=== PATIENT | male | born 1935 | race Caucasian/White ===

== ENCOUNTER 2016-11-10 13:13 | Inpatient (IN) | payer OTHER ==
--- NOTE | 2016-11-10 14:03 | EDPHY ---
H & P Stated Complaint: Passed out 2 days ago while taking a shower;lac to forehead Time Seen by Provider: 11/10/16 13:43 HPI/ROS: CHIEF COMPLAINT: Syncope, head injury HISTORY OF PRESENT ILLNESS: Patient says he was standing in the bathroom 2 days ago when he lost consciousness. He did not recently stood up. He does not recall exactly what happened. He feels that he was on the ground for just a moment. He says that he struck his head on the sink or toilet when he fell. He woke with a laceration of the forehead that was mild. Had a mild headache at that time. Since then he has been slightly lightheaded and dizzy. He has no headache at this time. No chest pain preceding this or since. No abdominal pain. No back pain. Incontinence of bowel or bladder. No motor or sensory changes distally. No history of this. No history of venous thrombolic event. No recent travel or surgery. Does not take any blood thinners. No other associated complaints or modifying factors. He said he is only here because his family wanted him to come. REVIEW OF SYSTEMS: Ten systems reviewed and are negative unless otherwise noted in the HPI PERTINENT MEDICAL HISTORY: Denies EXAMINATION General Appearance: Alert, no distress Head: normocephalic. There is superficial laceration on the forehead over the brow. No Vasquez sign. No raccoon eyes. No hematoma, crepitus or deformities. Eyes: Pupils equal and round, no conjunctival pallor or injection ENT, Mouth: Mucous membranes moist. Uvula midline. Neck: Normal inspection, supple, non-tender. No crepitus, step-off or deformity. Respiratory: Lungs are clear to auscultation. No wheezing, rhonchi or crackles. Cardiovascular: Regular rate and rhythm. No murmur. Pulses intact distally. Gastrointestinal: Abdomen is soft and nontender Back: non-tender, no bony abnormalities Neurological: GCS 15. A&O, nonfocal, strength symmetric in all 4 limbs. No pronator drift. No dysmetria. Skin: Warm and dry, no rash. 1.5 cm superficial laceration of the forehead over the brow Extremities: Nontender, no pedal edema Psychiatric: Mood and affect normal DIFFERENTIAL DIAGNOSES: Including but not limited to syncope, dehydration, anemia, PE, ACS, vasovagal syndrome MDM: 2:02 p.m. Syncope 2 days ago with subsequent closed head injury and superficial forehead laceration. Upon my examination his oxygenation is 88% with clear sounds in all lung sebastian. No chest pain. No neuro deficits. Cardiac labs, CT scan of the head, CT scan of the chest have been ordered. He is resting comfortably in no acute distress. Oxygen is normal on 2 L nasal cannula. 3:08 p.m. Laboratory studies are all within normal limits including a negative troponin. Notified by radiologist Dr. Candelario at this time that the CT scan of the head is unremarkable for any acute findings. CT scan of the chest is pending. He remains hemodynamically stable in no acute distress 3:[address] Workman CT scan of the chest reveals no PE. There is mild bronchitis. No other acute findings. I have re-evaluated the patient, and he remains awake and alert in no acute distress. No subsequent syncope here. No chest pain. Plan for admission for syncope and further workup. Forehead wound has been irrigated. We will dress this with Steri-Strips for routine wound care with delayed closure given that the wound has been open for over 48 hours. 3:45 p.m. Case discussed with hospitalist Dr. Gunn. He will admit the patient. He is admitted in stable condition. SUPERVISION: Patient was evaluated in conjunction with the supervising physician. Please see their note for details. Source: Patient Exam Limitations: No limitations - Personal History Current Tetanus Diphtheria and Acellular Pertussis (TDAP): Yes - Medical/Surgical History Hx Asthma: No Hx Chronic Respiratory Disease: No Hx Diabetes: No Hx Cardiac Disease: No Hx Renal Disease: No Hx Cirrhosis: No Hx Alcoholism: No Hx HIV/AIDS: No Hx Splenectomy or Spleen Trauma: No Other PMH: neg per hx - Social History Smoking Status: Never smoked Constitutional: Initial Vital Signs Temperature (C) 97.3 F 11/10/16 13:15 Heart Rate 57 L 11/10/16 13:15 Respiratory Rate 60 H 11/10/16 13:15 Blood Pressure 148/86 H 11/10/16 13:15 O2 Sat (%) 93 11/10/16 13:15 O2 Delivery Mode Room Air Allergies/Adverse Reactions: Sulfa (Sulfonamide Antibiotics) Allergy (Intermediate, Verified 11/10/16 13:28) huge purple welts Home Medications: Medication Instructions Recorded Esomeprazole Magnesium [Nexium] 20 mg PO 02/06/16 Medical Decision Making - Diagnostics Imaging Results: Imaging Impressions Chest X-Ray 11/10/16 13:53 Impression: Nothing acute radiographically. Head CT 11/10/16 14:00 Impression: 1. Mild to moderate age-related atrophy. 2. No hemorrhage, mass effect, or definite acute peripheral infarct. 3. Mild microvascular ischemic disease. 4. Nondisplaced fracture anterior right nasal bone. Findings discussed with Lul Barroso PAC at 15:07 hour, 11/10/2016. Chest/Thorax CTA 11/10/16 14:01 Impression: 1. No evidence for pulmonary embolus. Evidence of underlying pulmonary artery hypertension. 2. Mild bronchitis. Mild dependent atelectasis in both lower lobes. 3. Evidence of atherosclerotic disease in the coronary arteries. 4. Large hiatal hernia. 5. Other chronic findings, as above. Results called and discussed with Lul Barroso, PAC, on 11/10/2016 at 1517 hours. - Data Points Laboratory Results: Laboratory Results 11/10/16 13:59 11/10/16 13:59 11/10/16 11/10/16 11/10/16 13:59 13:59 13:59 WBC 5.40 10^3/uL 10^3/uL (3.80-9.50) RBC 5.13 10^6/uL 10^6/uL (4.40-6.38) Hgb 14.4 g/dL g/dL (13.7-17.5) Hct 44.1 % % (40.0-51.0) MCV 86.0 fL fL (81.5-99.8) MCH 28.1 pg pg (27.9-34.1) MCHC 32.7 g/dL g/dL (32.4-36.7) RDW 15.6 % H % (11.5-15.2) Plt Count 218 10^3/uL 10^3/uL (150-400) MPV 9.4 fL fL (8.7-11.7) Neut % (Auto) 53.7 % % (39.3-74.2) Lymph % (Auto) 35.0 % % (15.0-45.0) Yates % (Auto) 8.3 % % (4.5-13.0) Eos % (Auto) 1.9 % % (0.6-7.6) Baso % (Auto) 0.9 % % (0.3-1.7) Nucleat RBC Rel Count 0.0 % % (0.0-0.2) Absolute Neuts (auto) 2.90 10^3/uL 10^3/uL (1.70-6.50) Absolute Lymphs (auto) 1.89 10^3/uL 10^3/uL (1.00-3.00) Absolute Monos (auto) 0.45 10^3/uL 10^3/uL (0.30-0.80) Absolute Eos (auto) 0.10 10^3/uL 10^3/uL (0.03-0.40) Absolute Basos (auto) 0.05 10^3/uL 10^3/uL (0.02-0.10) Absolute Nucleated RBC 0.00 10^3/uL 10^3/uL (0-0.01) Immature Gran % 0.2 % % (0.0-1.1) Immature Gran # 0.01 10^3/uL 10^3/uL (0.00-0.10) PT 14.2 SEC SEC (12.0-15.0) INR 1.11 (0.83-1.16) APTT 27.1 SEC SEC (23.0-38.0) Sodium 138 mEq/L mEq/L (134-144) Potassium 4.1 mEq/L mEq/L (3.5-5.2) Chloride 106 mEq/L mEq/L (97-110) Carbon Dioxide 25 mEq/l mEq/l (22-31) Anion Gap 7 mEq/L L mEq/L (8-16) BUN 14 mg/dL mg/dL (7-23) Creatinine 0.9 mg/dL mg/dL (0.7-1.3) Estimated GFR > 60 Glucose 123 mg/dL H mg/dL (70-100) Calcium 9.5 mg/dL mg/dL (8.5-10.4) Troponin I < 0.012 ng/mL ng/mL (0-0.034) NT-Pro-B Natriuret Pep 76 pg/mL pg/mL (0-450) Lipase 53.0 IU/L IU/L (23-300) Departure - Departure Disposition: [facility] Inpatient Acute Clinical Impression: Syncope Qualifiers: Syncope type: unspecified Qualified Code(s): R55 - Syncope and collapse Condition: Good Referrals: RONNY SARAH [Other] - As per Instructions
[2016-11-10 14:04] LABS: % IMMATURE GRANULYOCYTES 0.2 % (0.0-1.1); ABSOLUTE IMMATURE GRANULOCYTES 0.01 10^3/uL (0.00-0.10); ADD DIFF? NO; ADD MORPH? NO; ADD SCAN? NO; ATYPICAL LYMPHOCYTE FLAG 20 (0-99); FRAGMENT RBC FLAG 0 (0-99); HEMATOCRIT 44.1 % (40.0-51.0); HEMOGLOBIN 14.4 g/dL (13.7-17.5); LEFT SHIFT FLG 0 (0-99); LIPEMIA HEMOLYSIS FLAG 80 (0-99); MEAN CELL HEMOGLOBIN 28.1 pg (27.9-34.1); MEAN CELL HEMOGLOBIN CONCENTR. 32.7 g/dL (32.4-36.7); MEAN PLATELET VOLUME 9.4 fL (8.7-11.7); PLATELET CLUMPS FLAG 0 (0-99); PLATELET COUNT 218 10^3/uL (150-400); RED BLOOD CELL COUNT 5.13 10^6/uL (4.40-6.38); RED CELL DISTRIBUTION WIDTH 15.6 % (11.5-15.2)
--- NOTE | 2016-11-10 14:09 | CPEKG ---
Heart Rate: 141 RR Interval: 426 QRSD Interval: 100 QT Interval: 380 QTC Interval: 582 QRS [place]: 4 T Wave [place]: 27 EKG Severity - ABNORMAL ECG - EKG Impression: ATRIAL FLUTTER, A-RATE 227 EKG Impression: MULTIFORM VENTRICULAR PREMATURE COMPLEXES EKG Impression: BORDERLINE PROLONGED QT INTERVAL Electronically Signed By: Reid Mcclendon 10-Nov-2016 20:26:03
[2016-11-10 14:14] LABS: INR 1.11 (0.83-1.16); PROTIME(PATIENT) 14.2 SEC (12.0-15.0)
[2016-11-10 14:15] LABS: APTT 27.1 SEC (23.0-38.0)
[2016-11-10 14:23] LABS: ANION GAP 7 mEq/L (8-16); CALCIUM 9.5 mg/dL (8.5-10.4); CARBON DIOXIDE 25 mEq/l (22-31); CHLORIDE 106 mEq/L (97-110); CREATININE 0.9 mg/dL (0.7-1.3); GLOMERULAR FILTRATION RATE > 60; GLUCOSE 123 mg/dL (70-100); POTASSIUM 4.1 mEq/L (3.5-5.2); SODIUM 138 mEq/L (134-144)
[2016-11-10 14:34] LABS: TROPONIN I < 0.012 ng/mL (0-0.034)
[2016-11-10] MEDS ORDERED: IOPAMIDOL (ISOVUE 370) 100 ML BTL IV ONE (14:36)
[2016-11-10] MEDS ORDERED: ONDANSETRON DISINTEGRATING 4 MG TAB PO PRN (16:38)
[2016-11-10] MEDS ORDERED: ACETAMINOPHEN 325 MG TAB PO PRN (16:38)
[2016-11-10] MEDS ORDERED: ONDANSETRON 4 MG/2 ML VIAL IVP PRN (16:38)
[2016-11-10] MEDS ORDERED: TEMAZEPAM 15 MG CAP PO PRN (16:43)
--- NOTE | 2016-11-10 17:22 | GHP ---
[f rep st] HISTORY AND PHYSICAL DATE OF ADMISSION: 11/10/2016 CHIEF COMPLAINT: Syncope. HISTORY OF PRESENT ILLNESS: This is an 81-year-old man who lives independently with no medical prob lems, who presents with syncope. Described as sudden, with no prodrome. No preceding chest pain, p alpitations, or shortness of breath. He fell and hit his head on the way down on the counter in the bathroom. This was unwitnessed. He did not bite his tongue or lose control of his bowel or his bl adder. He has never had an episode of syncope like this. He presents today because his family was very concerned about the cuts on his forehead and requested that he present for medical attention. He is normally very active and exercises frequently. He does not get any chest pain. He notes that he normally has a very low pulse around 40s "when he is training." PAST MEDICAL/PAST SURGICAL HISTORY: GERD. MEDICATIONS: Please see medication reconciliation. ALLERGIES: Sulfa. FAMILY HISTORY: His father had an arrhythmia. SOCIAL HISTORY: Lives independently with his . He occasionally drinks alcohol. He does not sm alexy cigarettes. REVIEW OF SYSTEMS: A 10-point review of systems is conducted and is negative except per the HPI. PHYSICAL EXAMINATION: VITAL SIGNS: Blood pressure 148/86, heart rate 57, respiration rate is 20, s aturating 93% on room air, temperature is 36.3. GENERAL: The patient is a very pleasant man who ap pears comfortable, alert, oriented, and in no acute distress. HEENT: Shows him to have multiple mi ld lacerations on his forehead. One of them has gauze over it. CARDIOVASCULAR: Exam shows him to be borderline bradycardic. There are no murmurs, rubs, or gallops. PULMONARY: Exam shows the lung s clear to auscultation bilaterally. ABDOMEN: Exam is soft, nontender, and nondistended. SKIN: E xam shows no rash. : Exam shows no Fritz. NEUROLOGIC: Exam shows him to be alert and oriented x3. He is moving all extremities. PSYCHIATRIC: Exam shows a normal mood and affect. LABORATORY DATA: CBC is normal. INR is 1.1. Basic metabolic panel is normal. Troponin is negativ e. BNP is 76. Lipase is negative. DATA: 1. I discussed this with Lul Barroso. We will admit for further workup. 2. CT angiogram of his chest and thorax is negative for PE. It shows mild bronchitis. He does hav e coronary artery disease seen on CT scan. He has a large hiatal hernia. 3. Head CT shows nothing acute. 4. ECG, which I personally viewed and interpreted, shows 3 different PVCs. They are the same morph ology. Otherwise, he is in a sinus rhythm. He has a poor baseline. He also had a PAC. IMPRESSION AND PLAN: An 81-year-old man with no medical history, who presents with syncope. 1. Syncope: Concerning for cardiac in origin. He does have multiple PVCs on his EKG, and he is townsend ving some PVCs on tele. We will admit, monitor on telemetry. I have ordered an echocardiogram as w ell as a treadmill EKG test for tomorrow. I have also trend troponins. If this is all negative, he will need at the very least a Holter monitor. He does have coronary artery disease seen on his CT scan. 2. Gastroesophageal reflux disease: Continue his Prilosec. 3. Code status: He would like to be [id number]. /[id number]/MODL
[2016-11-10 18:19] LABS: TROPONIN I 0.018 ng/mL (0-0.034)
[2016-11-11 01:15] LABS: COLOR YELLOW; LEUKOCYTE ESTERASE,URINE NEGATIVE (NEGATIVE); NITRITE,URINE NEGATIVE (NEGATIVE)
[2016-11-11 05:16] LABS: % IMMATURE GRANULYOCYTES 0.2 % (0.0-1.1); ABSOLUTE IMMATURE GRANULOCYTES 0.01 10^3/uL (0.00-0.10); ADD DIFF? NO; ADD MORPH? NO; ADD SCAN? NO; ATYPICAL LYMPHOCYTE FLAG 0 (0-99); FRAGMENT RBC FLAG 0 (0-99); HEMATOCRIT 40.6 % (40.0-51.0); HEMOGLOBIN 13.6 g/dL (13.7-17.5); LEFT SHIFT FLG 0 (0-99); LIPEMIA HEMOLYSIS FLAG 80 (0-99); MEAN CELL HEMOGLOBIN 28.5 pg (27.9-34.1); MEAN CELL HEMOGLOBIN CONCENTR. 33.5 g/dL (32.4-36.7); MEAN CELL VOLUME 84.9 fL (81.5-99.8); PLATELET CLUMPS FLAG 0 (0-99); PLATELET COUNT 199 10^3/uL (150-400); RED BLOOD CELL COUNT 4.78 10^6/uL (4.40-6.38); RED CELL DISTRIBUTION WIDTH 15.6 % (11.5-15.2)
[2016-11-11 05:35] LABS: ALANINE AMINOTRANSFERASE 27 IU/L (21-72); ALBUMIN 3.5 g/dL (3.5-5.0); ALKALINE PHOSPHATASE 62 IU/L (38-126); ANION GAP 9 mEq/L (8-16); ASPARTATE AMINOTRANSFERASE 22 IU/L (17-59); BILIRUBIN,TOTAL 1.1 mg/dL (0.1-1.4); CALCIUM 8.7 mg/dL (8.5-10.4); CARBON DIOXIDE 22 mEq/l (22-31); CHLORIDE 108 mEq/L (97-110); CREATININE 0.8 mg/dL (0.7-1.3); GLOMERULAR FILTRATION RATE > 60; GLUCOSE 94 mg/dL (70-100); POTASSIUM 4.3 mEq/L (3.5-5.2); SODIUM 139 mEq/L (134-144); TOTAL PROTEIN 6.2 g/dL (6.3-8.2)
[2016-11-11] MEDS ORDERED: PANTOPRAZOLE SODIUM 40 MG TAB PO PRN (09:00)
--- NOTE | 2016-11-11 11:19 | CPR ---
[f rep st] NONINVASIVE CARDIAC PROCEDURE REPORT DATE OF PROCEDURE: 11/11/2016 REASON FOR TEST: 1. Syncope. 2. Known premature ventricular contractions. FINDINGS: Resting EKG shows a sinus rhythm with multifocal PVCs. He is asymptomatic. Resting blood pressure is 124/74, resting heart rate 80. RECOVERY: He was exercised according to the [place] protocol. He had increased PVCs with exercise. He remained asymptomatic throughout the test. At 6 minutes , he rated it a 10/10. He had no chest pain. No increase of arrhythmias. Peak blood pressure was 180/80. Peak heart rate was 130. MET level reached was 7.1. There were no ischemic changes noted. He spontaneously recovered with noted return of PVCs. Bigeminy , Quad-geminy PVC's. No lightheadedness. He remained asymptomatic. His resting blood pressure was 118/74, resting heart rate 83. He has had 2 syncopal episodes prior to this hospitalization. Reviewed tracings with Dr Barrera. He recommends Holter Monitor and EP evaluation in-or out-patient. At this time, he currently is stable to return to his room. /[id number]/MODL MTDD
--- NOTE | 2016-11-11 11:21 | HOSPPROG ---
Hospitalist Progress Note Assessment/Plan: Patient is an 81-year-old male who presented with the emergency room with syncope. He had no prodrome. Today is my 1st encounter with the patient. Chart reviewed. *syncope (this is his second episode) treadmill done/having frequent pvc, multifocal echo shows ef of 70-75%, left atrium severely dilated CTA shows no PE, underlying pulm htn, mild bronchitis/ large hiatal hernia recommending a link monitor before dc had syncope last month where he landed on his face/sustained injuries to his face *GERD ppi *Plan: Cardiology to see prior to dc Subjective: Don is feeling well/ wants to go home, but would like to see cardiology prior to dc. Objective: Vital Signs Temp Pulse Resp BP Pulse Ox 37 C 62 18 130/82 H 92 11/11/16 08:00 11/11/16 08:00 11/11/16 08:00 11/11/16 08:00 11/11/16 08:00 Laboratory Results 11/11/16 04:58 11/11/16 04:58 11/10/16 11/11/16 11/12/16 05:59 05:59 05:59 Intake Total 550 Output Total 550 300 Balance 0 -300 PT 14.2 SEC (12.0-15.0) 11/10/16 13:59 INR 1.11 (0.83-1.16) 11/10/16 13:59 - Physical Exam Constitutional: no apparent distress, appears nourished Eyes: PERRL Ears, Nose, Mouth, Throat: hearing normal Cardiovascular: regular rate and rhythym, other (extra beats) Respiratory: no respiratory distress Skin: warm Musculoskeletal: full muscle strength Neurologic: AAOx3 Psychiatric: interacting appropriately ICD10 Worksheet Patient Problems: Problems Problem Status Onset Syncope Acute
--- NOTE | 2016-11-11 13:13 | ECHO ---
[id number] + + [address] : : [place] [address] : : [phone] + Adult Echocardiographic Report + ----+ :Name: HYUNUDAY ROBERTS CStudy Date: 11/11/2016 10:47 AM : : Hospital Admission Number: [id number] Location: 347: :: 1935 Gender: Male Height: 70 in : :Age: 81 yrs Race: WH Weight: 180 lb : :Reason For Study: Syncope : : BSA: 2.0 meters2 : + ----+ MMode/2D Measurements \T\ Calculations IVSd: 0.91 cm LVIDd: 4.4 cm FS: 41.3 % Ao root diam: LVPWd: 0.46 cm LVIDs: 2.6 cm EDV(Teich): 3.5 cm 89.5 ml LA dimension: ESV(Teich): 3.7 cm 24.7 ml EF(Teich): 72.3 % LVLd ap4: 7.5 cm SV(MOD-sp4): EDV(MOD-sp4): 35.0 ml 55.0 ml LVLs ap4: 6.5 cm ESV(MOD-sp4): 20.0 ml EF(MOD-sp4): 63.6 % Normal Measurement Values: + + :LVIDd (3.5-5.7cm) IVSd (0.6-1.1cm) LVPWd (0.6-1.1cm) Aortic Root (2.0-3.7cm)Left Atrium (1.5-4.0cm): :LV Vol(d) (76-115ml) LV Vol(s) (29-48ml) Ejec Fraction (50-65%)PV Ajydon (0.6- 1.2m/s) TV Jaydon (0.4-1.0m/s) : :MV E Jaydon (0.8-1.0m/s)MV A Jaydon (0.3-1.0m/s)LVOT Jaydon (0.7-1.2m/s) Asc Ao Jaydon ( 0.9-1.8m/s) : + + Doppler Measurements \T\ Calculations MV E max jaydon: 53.8 cm/sec Ao V2 max: 134.4 cm/sec MV A max jaydon: 72.1 cm/sec Ao max P.2 mmHg MV E/A: 0.75 Left Ventricle The left ventricle is normal in size and function. There is normal left ventricular wall thickness. Left ventricular systolic function is normal. Ejection Fraction = 70-75%. No regional wall motion abnormalities noted. Right Ventricle The right ventricle is normal in size and function. Atria The left atrium is moderate to severely dilated. Right atrial size is normal. The interatrial septum is intact with no evidence for an atrial septal defect. Mitral Valve Calcified mitral apparatus. There is no evidence of mitral valve prolapse. There is no mitral valve stenosis. There is mild mitral regurgitation. Tricuspid Valve Normal tricuspid valve. There is mild tricuspid regurgitation. Aortic Valve The aortic valve is trileaflet. The aortic valve opens well. Mild AO calcification. There is no aortic stenosis. There is no aortic insufficiency. Pulmonic Valve The pulmonic valve is normal in structure and function. There is no pulmonic valvular regurgitation. Great Vessels The aortic root is normal size. Pericardium/Pleural There is no pericardial effusion. Conclusion A complete two-dimensional transthoracic echocardiogram was performed (2D, M-mode, Doppler and color flow Doppler). Left ventricular systolic function is normal. Ejection Fraction = 70-75%. The left ventricle is normal in size and function. The left atrium is moderate to severely dilated. Calcified mitral apparatus. There is mild mitral regurgitation. There is mild tricuspid regurgitation. Mild AO calcification. Final Reading Physician: Estiven Fountain signed on 11/11/2016 01:12 PM Ordering Physician: Rafael Gunn Performed By: Alisia Fowler RDCS
[2016-11-11] MEDS ORDERED: diphenhydrAMINE 25 MG CAP PO ONE (14:57)
[2016-11-11] MEDS ORDERED: ASPIRIN EC 325 MG TAB PO ONE (14:57)
[2016-11-11] MEDS ORDERED: DIAZEPAM 5 MG TAB PO ONE (14:57)
[2016-11-11] MEDS ORDERED: NITROGLYCERIN 0.4 MG BTL SL PRN (14:57)
[2016-11-11] MEDS ORDERED: NS 1,000 ML IV SCH (15:00)
[2016-11-11] MEDS ORDERED: fentaNYL 100 MCG/2 ML INJ ONE (15:05)
[2016-11-11] MEDS ORDERED: MIDAZOLAM 2 MG/2 ML VIAL ONE ×2 (15:05)
[2016-11-11] MEDS ORDERED: LIDOCAINE 1% 30 ML SDV ONE (15:05)
[2016-11-11] MEDS ORDERED: HEPARIN 10,000 UNIT/10 ML MDV ONE (15:06)
[2016-11-11] MEDS ORDERED: VERAPAMIL 5 MG/2 ML VIAL ONE (15:06)
[2016-11-11] MEDS ORDERED: IOPAMIDOL (ISOVUE-370) 150 ML BTL IV ONE ×2 (15:06→16:08)
[2016-11-11] MEDS ORDERED: ATROPINE SULFATE 1 MG/10 ML SYR IVP PRN (16:24)
--- NOTE | 2016-11-11 16:28 | PDDXCAT ---
Diagnostic Cath Note - . Date: 11/11/16 Truck Trailer Mechanic: Bruce Indication: Non-sustained (<30 sec) polymorphic ventricular tachycardia, other ( Syncope) - Procedure Access: right groin Procedure: left heart catheterization, coronary angiography, left ventriculogram - Materials Left Heart Cath size: 5F Left Heart Cath materials: standard multipack (JL4, JR4, pigtail) - Findings-Left Heart Catheterization LM: Unobstructed LAD: Unobstructed: Mild luminal irregularities. LCX: 15% 2nd obtuse marginal branch stenosis otherwise unobstructed RCA: Dominant vessel, luminal irregularities without focal stenosis. EDP: 14 mm of mercury LVEF: 65 Wall motion: Normal Complications: None Estimated blood loss: <50ml Closure method: Angioseal Assessment: 1. Syncope associated with multifocal PVCs. 2. Mild nonobstructive atherosclerotic cardiovascular disease. 3. Normal LV systolic function Plan: LINQ implantation Intervention: Procedure: LINQ implantation. The left ivon pectoral region was sterilely prepped and draped. A 1 cm site was anesthetized with 2% xylocaine. Using a 10 blade a small incision was made. Using blunt dissection a pocket was created. The LINQ was then injected into the subcutaneous tissue. The incision was closed with luzma. Pressure dressing was applied the patient is taken to recovery for continued care. Conclusion: Successful implantation of a LINQ monitor Patient Problems: Problems Problem Status Onset Syncope Acute
--- NOTE | 2016-11-11 19:40 | GCON ---
[f rep st] CONSULTATION This is an 81-year-old male, who lives independently with no medical problems, who presented with sy ncope. This happened in the morning. The patient was in the bathroom after having breakfast, and h e was standing up, not feeling lightheaded or dizzy. He was not inside the shower, and he suddenly collapsed, and injured himself. He came to within a minute, noticing bleeding. However, he was not confused and not lightheaded. He was not dizzy. He was not nauseated. He was not weak or tired. He did not bite his tongue or lose his bowel or bladder control, though he mentions that he has nev er had such an episode before. His family recalls that it has happened before. He is normally very active and exercises regularly. He does not get any chest pain. He notes that he has a low heart rate at baseline. PAST MEDICAL HISTORY: GERD. MEDICATIONS: Reviewed. ALLERGIES: To sulfa. FAMILY HISTORY: Father had diabetes. SOCIAL HISTORY: He lives independently with his . He occasionally drinks alcohol. He does not smoke cigarettes. REVIEW OF SYSTEMS: 10-point review of systems, other than above, is negative. PHYSICAL EXAMINATION: VITALS: Blood pressure of 148/86, heart rate of 57, respiratory rate 20, oxy gen saturation 93%. GENERAL: Patient is a pleasant male. Appears comfortable, alert, oriented, in no distress. HEENT: Multiple lacerations on his forehead. One of them has been stitched over. C ARDIOVASCULAR: S1, S2 regular. No S3. No murmurs. ABDOMEN: Soft, nontender. No organomegaly. Bowel sounds present. EXTREMITIES: No edema. SKIN: No rash. : No Fritz. NEUROLOGICAL: Aler t, oriented, intact. PSYCHIATRIC: Normal mood and affect. DIAGNOSTIC DATA: Labs appear to be normal. Echocardiogram performed, which is normal. The telemon itor shows at least 2 different morphologies of PVCs. IMPRESSION AND PLAN: This is an 81-year-old male, who presents with syncope. This syncope is peggy rning to be of cardiovascular origin, and hence, we need to make sure he has a structurally-normal h eart. We have seen the echocardiogram, and it is normal; hence, cardiac catheterization would be re commended in a patient like him who has a high risk for cardiovascular syncope. If the patient does not have coronary artery disease, then an implantable loop recorder will be placed so that further episodes can be detected. The patient will continue to be on telemonitor in case we detect somethin g while he is in the hospital. I have discussed this with the patient and the family, and they are agreeable to it. Thank you for letting me participate in patient's care. Feel free to call me with questions. /[id number]/MODL
[2016-11-12 05:13] LABS: ANION GAP 7 mEq/L (8-16); CALCIUM 8.6 mg/dL (8.5-10.4); CARBON DIOXIDE 20 mEq/l (22-31); CHLORIDE 111 mEq/L (97-110); CREATININE 0.8 mg/dL (0.7-1.3); GLOMERULAR FILTRATION RATE > 60; GLUCOSE 97 mg/dL (70-100); POTASSIUM 4.8 mEq/L (3.5-5.2); SODIUM 138 mEq/L (134-144); SPECIMEN HEMOLYSIS 124
[2016-11-12 08:11] VITALS: BP 112/80; PULSE 64; RESP 14; TEMP 98.1; O2SAT 95
--- NOTE | 2016-11-12 11:32 | HOSPPROG ---
Hospitalist Progress Note Assessment/Plan: Patient is an 81-year-old male who presented with the emergency room with syncope. He had no prodrome. 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 showed mild non obstructed atherosclerotic CV disease with normal LV function s/p LINK placed tele showed sinus rhythm with infrequent PVC's during the night *GERD ppi *Plan: needs luzma out in one week, f/u with Dr Freeman Subjective: Prasanth feels great/ he wants to go home Objective: Vital Signs Temp Pulse Resp BP Pulse Ox 36.7 C 64 14 112/80 95 11/12/16 08:00 11/12/16 08:00 11/12/16 08:00 11/12/16 08:00 11/12/16 08:00 Laboratory Results 11/12/16 04:40 11/11/16 11/12/16 11/13/16 05:59 05:59 05:59 Intake Total 1150 Output Total 925 Balance 225 PT 14.2 SEC (12.0-15.0) 11/10/16 13:59 INR 1.11 (0.83-1.16) 11/10/16 13:59 - Physical Exam Constitutional: no apparent distress, appears nourished, not in pain Eyes: PERRL Ears, Nose, Mouth, Throat: hearing normal Cardiovascular: regular rate and rhythym, other (palpable dp/pt pulses) Respiratory: no respiratory distress Gastrointestinal: normoactive bowel sounds Skin: warm, other (right groin without hematoma/ has steri strips above left eye area (POA)/ from a previous fall. Site clear.) Musculoskeletal: full muscle strength Neurologic: AAOx3 ICD10 Worksheet Patient Problems: Problems Problem Status Onset Syncope Acute
--- NOTE | 2016-11-12 16:57 | GDS ---
[f rep st] DISCHARGE SUMMARY DISCHARGE DIAGNOSES: 1. Syncopal event. 2. Nonsustained polymorphic ventricular tachycardia. 3. Gastroesophageal reflux disease. CONSULTATION: Dr. Freeman with Cardiology. BRIEF HISTORY: The patient is an 81-year-old man, who lives independently, who has no significant m edical problems. He had a syncopal event at home. He described it as sudden with no prodrome, with out any type of chest pain. He had an episode like this approximately a few weeks ago, but he did n ot mention on admission. He was seen and evaluated by the cardiology team. He had a noninvasive st ress test none. He had increased PVCs with exercise and he remained asymptomatic. Because of the s ignificance of his 2 syncopal events, he was seen and evaluated by Dr. Freeman and subsequently had a l eft heart catheterization, coronary angiography, and left ventriculogram with Dr. Barrera. This no aide that he had mild nonobstructive atherosclerotic cardiovascular disease with normal LV function. A link monitor is in place. He will follow up with Dr. Freeman in the outpatient setting. HOSPITAL COURSE: 1. Syncopal episode. This is the 2nd one. He had a treadmill done with multifocal PVCs. He had a n echo performed which showed an EF of 70% to 75%. His left atrium is severely dilated. He also townsend d a CTA performed, which showed no TE. He has underlying pulmonary hypertension as well as mild bro nchitis and a large hiatal hernia. 2. Nonsustained polymorphic VT. This occurred during a stress test. He is status post a left hear t catheterization. He has a link in place. He will follow up with Dr. Freeman in the next few weeks. 3. GERD, on PPI. PENDING LABS AND TESTS: None. CONDITION AT DISCHARGE: Stable. Blood pressure is 112/80, O2 sats on room air 95%, respiratory rat e is 14, pulse 64, temperature is 36.7 Celsius. MEDICATIONS AT DISCHARGE: Please see the EMR. DISCHARGE INSTRUCTIONS: 1. To follow up with Dr. Freeman. 2. If he has any further syncopal events to return to the ER. 3. I recommend that a family member be with him. /[id number]/MODL
== END 2016-11-12 13:22 | disposition home or self-care (01) | DRG 261 ==
LOC: INTOOBSV 15:45 → F3N 16:46 → OBSVTOIN 11-11 14:59
PROVIDERS: ADMIT Student in an Organized Health Care Education/Training Program; ATTEND Internal Medicine
DX: R55 Syncope and collapse (principal); I47.2 Ventricular tachycardia; I25.10 Atherosclerotic heart disease of native coronary artery without angina pectoris; K21.9 Gastro-esophageal reflux disease without esophagitis
CPT/HCPCS: 92523-GN; C1764; C1769; G0378; G9165-GN-CI; G9166-GN-CI; G9167-GN-CI; J1644; J2250; J3010; Q9967

== ENCOUNTER → 2016-11-28 | Outpatient (CLI) | payer OTHER | LOC: BHFA 15:30 | PROVIDERS: ATTEND Internal Medicine Cardiovascular Disease | DX: R55 Syncope and collapse (principal) ==

== ENCOUNTER → 2016-11-30 | Outpatient (CLI) | payer OTHER | LOC: BHFA 10:00 | PROVIDERS: ATTEND Internal Medicine Cardiovascular Disease | DX: R55 Syncope and collapse (principal) ==

== ENCOUNTER → 2016-12-16 | Outpatient (CLI) | payer OTHER | LOC: BHFA 13:30 | PROVIDERS: ATTEND Internal Medicine Cardiovascular Disease | DX: R55 Syncope and collapse (principal) ==